=== PATIENT | female | born 1985 | race Two or more races ===

== ENCOUNTER 2024-11-07 18:33 | Emergency (ER) | payer SELFPAY ==
[~2024-11-07] VITALS: Ht 154.9 cm; Wt 86.8 kg
[2024-11-07 18:43] VITALS: BP 140/88; PULSE 94; RESP 16; TEMP 98.4; O2SAT 96
[2024-11-07] MEDS ORDERED: ACET500T58 PO (18:51)
[2024-11-07] MEDS ORDERED: AMOX875T4 PO (18:51)
--- NOTE | 2024-11-07 18:52 | ED.PDOC ---
Eye-HPI HPI Comments 39-year-old female presents to ER with complaints of left-sided earache pain x1 day. Patient reports he started experiencing left-sided earache pain yesterday. She rates her current left earache pain a 10/10 without radiation and states that she did put "peroxide" in her ear without any relief. Patient presents to ER ambulatory on arrival, with steady gait, in no distress. Denies fever, recent swimming, skin changes, headache, dizziness, nausea/vomiting or any further symptoms/complaints Chief Complaint: Earache Time Seen by MD: 18:38 Primary Care Provider: UNKNOWN Reviewed Notes: Nurses Notes, Medications, Allergies Allergies: Coded Allergies: NO KNOWN ALLERGIES (Unverified , 11/07/24) Home Meds Active Scripts Amoxicillin & Pot Clavulanate (Amoxicillin/Potassium Cla) 875 Mg Tab, 1 TAB PO BID for 7 Days, #14 TAB 0 Refills Prov:DRE SUTTON 11/07/24 Acetaminophen (Acetaminophen) 500 Mg Tab, 500 MG PO Q4HPRN, #30 TAB 0 Refills Prov:DRE SUTTON 11/07/24 Information Source: Patient Mode of Arrival: Ambulatory Past Medical History PAST MEDICAL HISTORY: Denies Surgical History: Denies all surgeries SIDE PANEL HANGER History: No Pertinent SIDE PANEL HANGER History Family History Family History: Unknown Social History Smoker: Non-Smoker Alcohol: Denies ETOH Use Drugs: Denies Drug Use Lives In: Home Constitutional: denies: chills, diaphoresis, fatigue, fever, malaise, sweats, weakness, others EENTM: reports: others (As stated in HPI) Respiratory: denies: cough, hemoptysis, orthopnea, SOB at rest, shortness of breath, SOB with excertion, stridor, wheezing, others Cardiovascular: denies: chest pain, dizzy spells, diaphoresis, Dyspnea on exertion, edema, irregular heart beat, left arm pain, lightheadedness, palpitations, PND, syncope, others Gastrointestinal: denies: abdomen distended, abdominal pain, blood streaked bowels, constipated, diarrhea, dysphagia, difficulty swallowing, hematemesis, melena, nausea, poor appetite, poor fluid intake, rectal bleeding, rectal pain, vomiting, others Genitourinary: denies: abnormal vagina bleeding, burning, dyspareunia, dysuria, flank pain, frequency, hematuria, incontinence, pain, , vagina discharge, urgency, others Neurological: denies: dizziness, fainting, headache, left sided numbness, left sided weakness, numbness, paresthesia, pre-existing deficit, right sided numbness, right sided weakness, seizure, speech problems, tingling, tremors, weakness, others Musculoskeletal: denies: back pain, gout, joint pain, joint swelling, muscle pain, muscle stiffness, neck pain, others Integumetry: denies: bruises, change in color, change in hair/nails, dryness, laceration, lesions, lumps, rash, wounds, others Allergic/Immunocompromised: denies: Difficulty Healing, Frequent Infections, Hives, Itching, others Hematologic/Lymphatic: denies: anemia, blood clots, easy bleeding, easy bruising, swollen glands, others Endocrine: denies: excessive hunger, excessive sweating, excessive thirst, excessive urination, flushing, intolerance to cold, intolerance to heat, unexplained weight gain, unexplained weight loss, others Psychiatric: denies: anxiety, bipolar disorder, depression, hopeless, panic disorder, schizophrenia, sleepless, suicidal, others Physical Exam General Appearance: No Apparent Distress, Obese HEENT: PERRL/EOMI, Pharynx Normal, TMs Normal, Other (Mild erythema/bulging noted to left TM. 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 Was a procedure done?: No Sedation Sedation?: No EENT DIFF Eye: N/A Ear: Abrasion, Cerumen Impaction, Foreign Body, Otitis Externa X-Ray, Labs, Meds, VS Advised to avoid hydrogen peroxide in ear Advised to follow up with PCP in 1-2 days Patient verbalized understanding and agreeable with current plan of care Advised to return to ER immediately if symptoms worsen Time of 1ST Reevaluation: 18:38 Reevaluation 1ST: N/A Patient Education/Counseling: Diagnosis, Treatment, Prognosis, Need For Follow Up Family Education/Counseling: No Family Present Departure 1 Departure Time of Disposition: 18:50 Impression: Primary Impression: Otitis media of left ear Qualified Codes: H66.92 - Otitis media, unspecified, left ear Disposition: HOME / SELF CARE / HOMELESS Condition: Stable e-Prescriptions Amoxicillin & Pot Clavulanate (Amoxicillin/Potassium Cla) 875 Mg Tab 1 TAB PO BID for 7 Days, #14 TAB 0 Refills Prov: DRE SUTTON 11/07/24 Acetaminophen (Acetaminophen) 500 Mg Tab 500 MG PO Q4HPRN, #30 TAB 0 Refills Prov: DRE SUTTON 11/07/24 Discharged With: Self Critical Care Note Critical Care Time?: No Stability Stability form required: No Heart Score Heart Score: Heart Score Response (Comments) Value History N/A 0 EKG N/A 0 Age N/A 0 Risk Factors N/A 0 Troponin N/A 0 Total 0 DRE SUTTON Nov 07, 2024 18:51
== END 2024-11-07 21:13 | disposition home or self-care (01) ==
LOC: ER 18:33
DX: H66.92 Otitis media, unspecified, left ear (principal)